=== PATIENT | male | born 1950 | race Caucasian/White ===

== ENCOUNTER 2018-02-16 09:36 | Day surgery (SDC) | payer MEDICARE, OTHER, SELFPAY ==
[2018-02-16] VITALS (7 sets, daily range): BP systolic 117–153; BP diastolic 67–86; PULSE 42–77; RESP 14–50; TEMP 36.3–36.9; O2SAT 96–100; BMI 28.0
--- NOTE | 2018-02-16 | PATH_ITS ---
[facility] Accession Number: [id number] . 01 Material submitted: . PART A: POLYP AT 37 PART B: POLYP PROXIMAL TRANSVERSE COLON AT 120 PART C: POLYP PROXIMAL TRANSVERSE COLON AT 80 PART D: POLYP AT 73 PART E: POLYP AT 34 RECTOSIGMOID JUNCTION PART F: RECTAL BIOPSY . 02 Diagnosis: A. Colon Polyp at 37 cm: Tubular adenoma. . B. Proximal Transverse Colon Polyp at 120 cm: Tubular adenoma. . C. Proximal Transverse Colon Polyp at 80 cm: Tubular adenoma. . D. Colon Polyp at 73 cm: Tubular adenoma. . E. Rectosigmoid Junction Polyp at 34 cm: Tubular adenoma. . F. Rectum, Biopsy: Hyperplastic polyp. Negative for active or microscopic colitis. Negative for granulomata, dysplasia or malignancy. [facility]/02/18/2018 . 02 Electronically signed: . Bassam Toscano MD, PhD, Pathologist NPI- [id number] . 01 Gross description: . Part A: POLYP AT 37: Received in formalin is 1 fragment(s) of costello, soft tissue measuring 0.7 x 0.6 x 0.5 cm submitted entirely in 1 cassette(s) Part B: POLYP PROXIMAL TRANSVERSE COLON AT 120: Received in formalin is 1 fragment(s) of costello, soft tissue measuring 0.4 x 0.4 x 0.2 cm submitted entirely in 1 cassette(s) Part C: POLYP PROXIMAL TRANSVERSE COLON AT 80: Received in formalin is 1 fragment(s) of costello, soft tissue measuring 0.5 x 0.4 x 0.3 cm submitted entirely in 1 cassette(s) Part D: POLYP AT 73: Received in formalin is 1 fragment(s) of costello, soft tissue measuring 0.4 x 0.3 x 0.3 cm submitted entirely in 1 cassette(s) Part E: POLYP AT 34 RECTOSIGMOID JUNCTION: Received in formalin is 1 fragment(s) of costello, soft tissue measuring 0.5 x 0.5 x 0.3 cm submitted entirely in 1 cassette(s) Part F: RECTAL BIOPSY: Received in formalin is 1 fragment(s) of costello, soft tissue measuring 0.5 x 0.5 x 0.5 cm submitted entirely in 1 cassette(s) /CKI /CKI . 02 Pathologist provided ICD-10: D12.3, D12.7 . 02 CPT . 630066, 677979, 365329, 721205, 492323, 546829 Specimen Comment: A duplicate report has been generated due to demographic updates. Performed at: [address] [facility] [address] [id number] MD Josesito Avelar MD Phone: [phone] Performed at: 02 [facility] [address] [place], [place] [id number] MD Rodriguez Mata MD Phone: [phone]
--- NOTE | 2018-02-16 10:23 | PM.HP.1 ---
History of Present Illness Chief complaint: Colonoscopy; [address]978 Narrative: 67 yr old male here for interval colon cancer screening colonoscopy. Last colonoscopy done 3 years ago identified a polyp. No complaints of chronic constipation, abdominal bloating, blood per rectum, melena, abdominal pain. Maternal aunt from colon cancer. Patient History Medical History Other and unspecified hyperlipidemia (Chronic 08/07/12) Hypertension (Chronic) Elevated PSA (Chronic) Back pain (Chronic) H/O adenomatous polyp of colon (Inactive) Meningioma (Resolved 1989) Surgical History History of excision of mass (Resolved 1989) Family & Social History Family History: Reviewed 02/16/18 by Serafin Song MD Social History: household members spouse lives independently Yes caregiver/support person No Tobacco & Substance use: Smoking Status Never smoker alcohol intake current Meds Home Medications Medication Instructions Recorded Confirmed Type lisinopril 20 mg tablet 20 mg PO QDAY #90 tab 02/09/18 02/16/18 Rx Allergies Allergy/AdvReac Type Severity Reaction Status Date / Time No Known Allergies Allergy Uncoded 02/16/18 10:00 Review of Systems Review of Systems All systems reviewed & are unremarkable except as noted in HPI and below Exam Vital Signs (past 8 hours): - 02/16/18 10:01 Temperature 97.3 F L Pulse Rate 77 Respiratory Rate 18 Blood Pressure 153/82 H Pulse Oximetry 100 Oxygen Delivery Method Room Air Const General: healthy appearing [facility] Head: normal to inspection, normocephalic and atraumatic Eyes Sclera: sclerae normal Neck Neck: supple Chest Chest: normal inspection of the chest Resp Effort & Inspection: normal respiratory effort Cardio Rate: regular rate GI Inspection: normal to inspection Palpation: soft Skin General: no rashes or lesions noted Neuro General: alert, awake and moves all extremities Extrem General: normal to inspection Psych Appearance: grossly normal Mental Status: mental status grossly normal Assessment & Plan Plan: Assessment/Plan Narrative: History of colon polyp Interval colon cancer screening colonoscopy Procedure, benefits risks including bleeding and perforation reviewed with patient. Time Spent With Patient Time with patient: 25 - 35 minutes
--- NOTE | 2018-02-16 10:28 | P.HP_ITS ---
History of Present Illness Chief complaint: Colonoscopy; [address] Narrative: 67 yr old male here for interval colon cancer screening colonoscopy. Last colonoscopy done 3 years ago identified a polyp. No complaints of chronic constipation, abdominal bloating, blood per rectum, melena, abdominal pain. Maternal aunt from colon cancer. Patient History Medical History Other and unspecified hyperlipidemia (Chronic 08/07/12) Hypertension (Chronic) Elevated PSA (Chronic) Back pain (Chronic) H/O adenomatous polyp of colon (Inactive) Meningioma (Resolved 1989) Surgical History History of excision of mass (Resolved 1989) Family & Social History Family History: Reviewed 02/16/18 by Serafin Song MD Social History: household members spouse lives independently Yes caregiver/support person No Tobacco & Substance use: Smoking Status Never smoker alcohol intake current Meds Home Medications Medication Instructions Recorded Confirmed Type lisinopril 20 mg tablet 20 mg PO QDAY #90 tab 02/09/18 02/16/18 Rx Allergies Allergy/AdvReac Type Severity Reaction Status Date / Time No Known Allergies Allergy Uncoded 02/16/18 10:00 Review of Systems Review of Systems All systems reviewed & are unremarkable except as noted in HPI and below Exam Vital Signs (past 8 hours): - 02/16/18 10:01 Temperature 97.3 F L Pulse Rate 77 Respiratory Rate 18 Blood Pressure 153/82 H Pulse Oximetry 100 Oxygen Delivery Method Room Air Const General: healthy appearing [facility] Head: normal to inspection, normocephalic and atraumatic Eyes Sclera: sclerae normal Neck Neck: supple Chest Chest: normal inspection of the chest Resp Effort & Inspection: normal respiratory effort Cardio Rate: regular rate GI Inspection: normal to inspection Palpation: soft Skin General: no rashes or lesions noted Neuro General: alert, awake and moves all extremities Extrem General: normal to inspection Psych Appearance: grossly normal Mental Status: mental status grossly normal Assessment & Plan Plan: Assessment/Plan Narrative: History of colon polyp Interval colon cancer screening colonoscopy Procedure, benefits risks including bleeding and perforation reviewed with patient. Time Spent With Patient Time with patient: 25 - 35 minutes
[2018-02-16] MEDS: SODIUM CHLORIDE 0.9% 1,000 ML 42 ML IV (11:01)
[2018-02-16] MEDS: diphenhydrAMINE 50 MG/ML VIAL IV (11:03)
[2018-02-16] MEDS: MIDAZOLAM 5 MG/5 ML VIAL IV (11:04)
[2018-02-16] MEDS: fentaNYL 250 MCG/5 ML INJ IV (11:16)
--- NOTE | 2018-02-16 12:12 | P.OP.ENDO_ITS ---
Operative Date/Time/Diagnoses Date of procedure: 02/16/18 Pre-op diagnosis: History of colon polyp Procedure & Clinicians Study performed: Colonoscopy with polypectomies Same procedure as scheduled: Yes Indications: Colon cancer screening history of colon polyp Surgeon: Serafin Song Procedure Notes SCOAP/Timeout: done Procedure in detail: Patient taken from preoperative area to endoscopy suite with adequate iv access on guerny. Timeout was performed. IV sedation sedation was titrated throughout the case while patient was continuously monitored. Inspection of anal orifice revealed no lesions. Digital exam failed to palpate any lesions. A well lubricated Learndoti colonoscope was gently introduced through the anus and advanced to the cecum using the dither-torque technique. Confirmation of reaching the cecum was acheived by identifying the appendiceal orifice and ileocecal valve. raised polyps at 120cm, 80cm and 70cm in transverse colon were removed with cold biopsy forceps. Raised polyps at 37cm and 34 cm at distal sigmoid colon were removed by snare technique. A resolution clip was appled to polypectomy site at 37cm for hemostasis. Retroflexion of the endoscope in lower third of rectum revealed grade II internal hemorrhoids and a raised polyp that was removed with cold biopsy forceps. Residual insufflation was evacuated. Patient tolerated procedure well and was transferred to PACU in stable condition. Scope withdrawal time: 50 minutes Sedation minutes: 80 Specimen(s): other (polyps at 120, 80,73,37, and 34 cm, and distal rectum.) Complications: none Recommendations: Colonscopy in 3 years (or sooner if indicated by pathology ), High fiber diet and Other recommendation (metamucil daily) Follow up: weeks (1 week to review polypectomy results in surgical clinic) Disposition: PACU
--- NOTE | 2018-02-16 13:05 | SUR.PHASEI ---
Prpolonged Phase )ne stay due to HR slower than intake. Rhythm difficult to read due to artifact and initially called SR irregular with ? blocked PACs, but request of Dr Song for 12 Lead to verify rhythm revealed Afib with slow vent response. Patient assymptomatic. Dr Song spoke with patient at bedside and separately about findings of colonoscopy and 12 Lead.
== END 2018-02-16 13:01 | disposition home or self-care (01) ==
PROVIDERS: Family Provider Family Medicine; PCP Internal Medicine; Visit Provider Surgery
PROC: 0DJD8ZZ Inspection of Lower Intestinal Tract, Via Natural or Artificial Opening Endoscopic (ICD-10-PCS; CPT 45378; principal; 2018-02-16 10:45)
DX: Z86.010 Personal history of colon polyps (principal); K64.1 Second degree hemorrhoids; I48.91 Unspecified atrial fibrillation; E78.5 Hyperlipidemia, unspecified; I10 Essential (primary) hypertension; D12.3 Benign neoplasm of transverse colon; D12.7 Benign neoplasm of rectosigmoid junction; K62.1 Rectal polyp
CPT/HCPCS: 45385; 45380; 88305; 93005; 93010; 99152; 99153; J1200; J2250; J3010

== ENCOUNTER → 2018-02-26 09:00 | Outpatient (CLI) | payer MEDICARE, OTHER, SELFPAY ==
--- NOTE | 2018-03-12 08:29 | PM.CARDMON.1 ---
Wheel Tuner Report Referral & Results Date Patient Seen: 02/27/18 Requesting provider: Artie Cool Indication: Paroxysmal atrial fibrillation Duration of monitoring (days): 8 Diary information: No patient diary entries or triggered events Data: Minimum heart rate identified was 29 beats per minute at 05:25 on 03/01/2018 Maximum heart rate was 172 beats per minute in atrial fibrillation at 16:01 on 02/27/2018 Overall patient was in atrial fibrillation 100% of the time Patient had 4 pauses ranging from 3-3.5 seconds in duration Patient had rare PVCs and a 3.3 sec run of ventricular bigeminy Overall patient's heart rate was less than 100 the vast, vast majority of the time with heart rate below 60 at least 50% or more of the time Impression: Persistent atrial fibrillation with bradycardia and pauses of up to 3.5 sec as above.
--- NOTE | 2018-03-12 08:33 | P.HOLT.S_ITS ---
Early Interventionist Report Referral & Results Date Patient Seen: 02/27/18 Requesting provider: Artie Cool Indication: Paroxysmal atrial fibrillation Duration of monitoring (days): 8 Diary information: No patient diary entries or triggered events Data: Minimum heart rate identified was 29 beats per minute at 05:25 on 2017 Maximum heart rate was 172 beats per minute in atrial fibrillation at 16:01 on 02/27/2018 Overall patient was in atrial fibrillation 100% of the time Patient had 4 pauses ranging from 3-3.5 seconds in duration Patient had rare PVCs and a 3.3 sec run of ventricular bigeminy Overall patient's heart rate was less than 100 the vast, vast majority of the time with heart rate below 60 at least 50% or more of the time Impression: Persistent atrial fibrillation with bradycardia and pauses of up to 3.5 sec as above.
== END ==
PROVIDERS: Family Provider Family Medicine; PCP Internal Medicine; Visit Provider Internal Medicine
DX: I48.91 Unspecified atrial fibrillation (principal)
CPT/HCPCS: 0296T; 0298T

== ENCOUNTER → 2018-04-17 09:19 | Outpatient (CLI) | payer MEDICARE, OTHER, SELFPAY ==
--- NOTE | 2018-04-17 | DI.ECHO.S_ITS ---
[facility] +---------+ : : [address] : [place] : : : : [id number] : : : : Phone: [phone]+ Echocardiogram Report + + :Name: TIM KIM Study Date: 04/17/2018 Height: 73 in : :[facility] Weight: 218 lb: : Gender: Male BSA: 2.2 m2 : :: 1950 Age: 68 yrs : :Reason For Study: AFIB : :Ordering Physician: Korey Ortiz : :Ana Performed By: Fabienne Romero : :Referring: Dr. Artie Cool : + + Interpretation Summary The left ventricle is normal in size. The ejection fraction is estimated to be 60-65%. The right ventricle is mildly dilated. The right ventricular systolic function is normal. There is moderate aortic regurgitation. There is mild to moderate tricuspid regurgitation. The right ventricular systolic pressure is estimated to be at least 38 mmHg based on an estimated right atrial pressure of 15 mm Hg. The aortic root is mildly dilated. The ascending aorta is moderate-severely enlarged. About 4.8 cm in diameter. Procedure: A two-dimensional transthoracic echocardiogram with color flow and Doppler was performed. The study quality was technically adequate. There is no prior echocardiogram noted for this patient. The patient was in atrial fibrillation with heart rates between 50-62 bpm during the exam. Left Ventricle: The left ventricle is normal in size. Proximal septal thickening is noted. Left ventricular wall thickness is borderline increased. There is no thrombus. The ejection fraction is estimated to be 60-65%. There are no focal wall motion abnormalities. Diastolic function could not be accurately assessed due to atrial fibrillation. Right Ventricle: The right ventricle is mildly dilated. The right ventricular systolic function is normal. Atria: The left atrium is severely dilated. The right atrium is moderately dilated. There is no Doppler evidence for an interatrial shunt. Mitral Valve: There is mild mitral annular calcification. There is mild mitral regurgitation. Aortic Valve: The aortic valve is trileaflet. The aortic valve is slightly calcified. There is no aortic valve stenosis. There is moderate aortic regurgitation. Tricuspid Valve: The tricuspid valve is normal. There is mild to moderate tricuspid regurgitation. The right ventricular systolic pressure is estimated to be at least 38 mmHg based on an estimated right atrial pressure of 15 mm Hg. Pulmonic Valve: The pulmonic valve is not well seen, but is grossly normal. There is trace pulmonic regurgitation. Great Vessels: The aortic root is mildly dilated. The ascending aorta is moderate-severely enlarged. The aortic arch is mildly enlarged. The pulmonary artery is normal size. The IVC is dilated (diameter is greater than 2.1 cm) and it collapses less than 50% with a sniff. This suggests a high right atrial pressure of 15 mm Hg. Pericardium/ Pleura There is no pericardial effusion. There is no pleural effusion. MMode/2D Measurements & Calculations LVIDd: 5.1 cm LVOT diam: 2.2 cm LVIDs: 3.0 cm Ao root diam: 4.1 cm FS: 40.6 % asc Aorta Diam: 4.7 cm IVSd: 1.2 cm Ao Arch Diam (distal): 3.3 cm LVPWd: 0.80 cm LV goodrich. diameter/BSA (cm/m^2): 2.3 LV sys. diameter/BSA (cm/m^2): 1.4 LA A2 area: 26.1 cm2 RA long axis: 6.5 cm LA A4 area: 35.0 cm2 RA area: 26.8 cm2 LA length (vol): 6.8 cm RA vol: 93.7 ml LA vol: 114.7 ml RA : 42.0 ml/m2 LA vol index: 51.4 ml/m2 IVC diam: 2.5 cm RVD1 (basal): 4.4 cm Doppler Measurements & Calculations Ao V2 max: 154.2 cm/sec LVOT Max Jarret: 121.3 cm/sec Ao V2 mean: 108.4 cm/sec LV V1 max P.9 mmHg Ao max P.6 mmHg LV V1 VTI: 24.6 cm Ao mean P.3 mmHg JOSE(I,D): 2.9 cm2 Ao V2 VTI: 32.6 cm JOSE(V,D): 3.1 cm2 sev ratio: 0.75 JOSE indexed to BSA (cm^2/m^2): 1.3 MV E max jarret: 103.1 cm/sec TR max jarret: 240.8 cm/sec MV dec time: 0.17 sec TR max P.2 mmHg SV(LVOT): 95.9 ml Reading Physician:SAURAV
== END ==
PROVIDERS: PCP Internal Medicine; Visit Provider Internal Medicine Cardiovascular Disease
DX: I08.3 Combined rheumatic disorders of mitral, aortic and tricuspid valves (principal); I48.1 Persistent atrial fibrillation
CPT/HCPCS: 93306

== ENCOUNTER → 2018-05-15 11:57 | Outpatient (CLI) | payer MEDICARE, OTHER, SELFPAY ==
[2018-05-15 14:28] LABS: BUN Creatinine Ratio 24.4 (6-22); Blood Urea Nitrogen 22 mg/dL (9-20); Calcium 9.1 mg/dL (8.4-10.2); Carbon Dioxide 28 mmol/L (22-32); Chloride 99 mmol/L (98-107); Estimated Glomerular Filt Rate > 60.0 mL/min (>60); Glucose 89 mg/dL (80-110); HEMOLYSIS 20 (0-50); Potassium 3.9 mmol/L (3.4-5.1); Sodium 138 mmol/L (137-145)
== END ==
PROVIDERS: Family Provider Internal Medicine; PCP Internal Medicine; Visit Provider Physician Assistant
DX: I10 Essential (primary) hypertension (principal); I77.9 Disorder of arteries and arterioles, unspecified
CPT/HCPCS: 36415; 80048

== ENCOUNTER → 2019-07-16 09:05 | Outpatient (CLI) | payer MEDICARE, OTHER, SELFPAY ==
--- NOTE | 2019-07-16 | DI.ECHO.S_ITS ---
[facility]---------+ [facility] +---------+ : : [address] : [place] : : : : [id number] : : : : Phone: [phone] : [phone] +---------+ Echocardiogram Report + + :Name: TIM KIM Study Date: 07/16/2019 Height: 73 in : :[facility] Weight: 227 lb : : Gender: Male BSA: 2.3 m2 : :: 1950 Age: 69 yrs BP: 162/86 mmHg: :Reason For Study: THORACIC AORTIC ECTASIS : :Ordering Physician: Phillip : :Angel Porter Performed By: Rosalie Mcrae : + + Interpretation Summary 1) Normal left ventricular size with normal function (EF 60-65%). 2) Mildly enlarged right ventricle with normal function. 3) The left atrium is severely dilated. 4) There is mild to moderate aortic regurgitation. 5) The ascending aorta is moderate-severely enlarged at 4.8cm. 6) Hypertension present during the study (BP 162/86mmHg). 7) Compared to the Echo done 04/17/2018, no significant change. Procedure: A two-dimensional transthoracic echocardiogram with color flow and Doppler was performed. The study quality was technically adequate. Comparison is made with the echocardiogram of 04/17/2018. The patient was in atrial fibrillation with heart rates between 46-73 bpm during the exam. Left Ventricle: The left ventricle is normal in size. Proximal septal thickening is noted. There is no ventricular septal defect visualized. The ejection fraction is estimated to be 60-65%. There are no obvious focal wall motion abnormalities noted but poor endocardial definition reduces the sensitivity for the detection of such. Diastolic function could not be accurately assessed due to atrial fibrillation. Right Ventricle: The right ventricle is mildly dilated. The right ventricular systolic function is normal. Atria: The left atrium is severely dilated. The right atrium is moderately dilated. There is no Doppler evidence for an interatrial shunt. Mitral Valve: The mitral valve is normal in structure and function. There is trace mitral regurgitation. Aortic Valve: The aortic valve is trileaflet. The aortic valve is mildly calcified. There is no aortic valve stenosis. There is mild to moderate aortic regurgitation. Tricuspid Valve: The tricuspid valve is normal in structure and function. There is trace tricuspid regurgitation. Right ventricular systolic pressure is estimated to be 28 mmHg plus the clinically estimated CVP which cannot be estimated on this exam. Pulmonic Valve: The pulmonic valve is not well visualized. There is a trace or physiologic amount of pulmonic regurgitation. Great Vessels: The aortic root is moderately dilated. The ascending aorta is moderate-severely enlarged. The aortic arch is normal in size. The inferior vena cava was not well visualized. The IVC has a measurement of 19 mm. Pericardium/ Pleura There is no pericardial effusion. MMode/2D Measurements & Calculations LVIDd: 5.4 cm LVOT diam: 2.2 cm LVIDs: 3.0 cm Ao root diam: 4.6 cm FS: 44.4 % Aortic Jxn: 4.1 cm EPSS: 0.13 cm asc Aorta Diam: 4.8 cm IVSd: 1.1 cm Ao Arch Diam (Prox Trans): 2.7 cm LVPWd: 0.91 cm LV goodrich. diameter/BSA (cm/m^2): 2.4 LV sys. diameter/BSA (cm/m^2): 1.3 LA A2 area: 36.4 cm2 RA long axis: 6.8 cm LA A4 area: 31.2 cm2 RA area: 27.2 cm2 LA length (vol): 6.8 cm RA vol: 92.2 ml LA vol: 141.4 ml RA : 40.6 ml/m2 LA vol index: 62.3 ml/m2 IVC diam: 1.9 cm RVD1 (basal): 4.2 cm RVD2 (mid): 2.5 cm TAPSE: 2.3 cm Doppler Measurements & Calculations Ao V2 max: 168.9 cm/sec LVOT Max Jarret: 86.2 cm/sec Ao V2 mean: 105.4 cm/sec LV V1 max P.0 mmHg Ao max P.4 mmHg LV V1 VTI: 16.6 cm Ao mean P.3 mmHg JOSE(I,D): 2.0 cm2 Ao V2 VTI: 30.6 cm JOSE(V,D): 1.9 cm2 sev ratio: 0.54 JOSE indexed to BSA (cm^2/m^2): 0.88 AI P1/2t: 1195 msec AI dec slope: 107.1 cm/sec2 Med Peak E' Jarret: 8.4 cm/sec TR max jarret: 266.2 cm/sec Lat Peak E' Jarret: 10.0 cm/sec TR max P.4 mmHg MVA(VTI): 4.0 cm2 PA V2 max: 81.3 cm/sec PA V2 mean: 57.8 cm/sec PA mean P.5 mmHg PA Accel Time: 0.11 sec MV V2 mean: 53.9 cm/sec SV(LVOT): 61.4 ml MV mean P.4 mmHg MV V2 VTI: 15.2 cm Reading Physician:03:50 PM
== END ==
PROVIDERS: Family Provider Internal Medicine; PCP Internal Medicine; Referring Provider Internal Medicine Cardiovascular Disease; Visit Provider Internal Medicine Cardiovascular Disease
DX: I77.810 Thoracic aortic ectasia (principal); I35.1 Nonrheumatic aortic (valve) insufficiency
CPT/HCPCS: 93306

== ENCOUNTER → 2019-07-30 09:36 | Outpatient (CLI) | payer MEDICARE, OTHER, SELFPAY ==
[2019-07-30 09:52] LABS: RBC Urine None Seen (0-5/HPF)
[2019-07-30 12:25] LABS: Add Manual Diff / Slide Review NO; Appearance Urine UA CLEAR; Basophils Absolute Auto 0 /uL (0-100); Basophils Percent Auto 0.8 % (0-2); Bilirubin Urine UA NEGATIVE (NEGATIVE); Color Urine UA YELLOW; Eosinophils Absolute Auto 100 /uL (0-450); Eosinophils Percent Auto 1.7 % (2-4); Glucose Urine UA NEGATIVE (Negative); Hematocrit 42.6 % (41-53); Hemoglobin 14.3 g/dL (13.5-17.5); Ketones Urine UA NEGATIVE (NEGATIVE); Leukocyte Esterase Urine UA NEGATIVE (NEGATIVE); Lymphocytes Absolute Auto 1100 /uL (1100-4500); Lymphocytes Percent Auto 22.6 % (25-40); Mean Corpuscular HGB Conc 33.7 % (30-36); Mean Corpuscular Hemoglobin 33.5 PG (26-34); Mean Corpuscular Volume 99.4 fL (80-100); Monocytes Absolute Auto 600 /uL (0-900); Monocytes Percent Auto 12.6 % (3-14); Neutrophils Absolute Auto 3000 /uL (1500-7000); Neutrophils Percent Auto 62.3 % (50-75); Nitrite Urine UA NEGATIVE (Negative); Occult Blood Urine UA NEGATIVE (Negative); Platelet Count 202 X10^3/uL (150-400); Protein Urine UA NEGATIVE (Negative); Red Blood Cell Count 4.28 X10^6/uL (4.5-5.9); Urobilinogen Urine UA 0.2 E.U./dL (0.2); White Blood Cell Count 4.8 X10^3/uL (4.5-11.0)
[2019-07-30 12:51] LABS: Alanine Aminotransferase 73 IU/L (<50); Albumin 4.6 g/dL (3.5-5.0); Albumin Globulin Ratio 1.8 (1.0-2.8); Alkaline Phosphatase 47 U/L (38-126); Aspartate Aminotransferase 61 IU/L (17-59); BUN Creatinine Ratio 14.4 (6-22); Bilirubin Total 1.5 mg/dL (0.2-1.3); Bilirubin Unconjugated 1.3 mg/dL (0.0-1.1); Blood Urea Nitrogen 13 mg/dL (9-20); Calcium 9.3 mg/dL (8.4-10.2); Carbon Dioxide 27 mmol/L (22-32); Chloride 104 mmol/L (98-107); Cholesterol 199 mg/dL (140-199); Estimated Glomerular Filt Rate > 60.0 mL/min (>60); Globulin 2.6 g/dL (1.7-4.1); Glucose 88 mg/dL (80-110); HDL Cholesterol 73 mg/dL (40-60); HEMOLYSIS < 15 (0-50); LDL Cholesterol Calculated 101 mg/dL (<100); Potassium 4.7 mmol/L (3.4-5.1); Sodium 139 mmol/L (137-145); Total Protein 7.2 g/dL (6.3-8.2); Triglycerides 124 mg/dL (35-150)
[2019-07-30 13:16] LABS: Prostate Specific Antigen 5.29 ng/mL (0.10-4.00)
[2019-07-30 13:40] LABS: Urine N gonorrhoeae NOT DETECTED
[2019-07-30 13:44] LABS: Bacteria Urine Occasional (0-1); WBC Urine 0-1/HPF (0-5/HPF)
[2019-07-30 14:16] LABS: Urine Chlamydia NOT DETECTED
== END ==
PROVIDERS: Family Provider Internal Medicine; PCP Internal Medicine; Referring Provider Internal Medicine; Visit Provider Internal Medicine
DX: I10 Essential (primary) hypertension (principal); I48.19 Other persistent atrial fibrillation; N34.2 Other urethritis; R97.20 Elevated prostate specific antigen [PSA]
CPT/HCPCS: 36415; 80048; 80061; 80076; 81001; 84153; 85025; 87491; 87591

== ENCOUNTER → 2020-08-24 08:02 | Outpatient (CLI) | payer MEDICARE, OTHER, SELFPAY ==
[2020-08-24 09:13] LABS: Add Manual Diff / Slide Review NO; Basophils Absolute Auto 0 /uL (0-100); Basophils Percent Auto 0.7 % (0-2); Eosinophils Absolute Auto 100 /uL (0-450); Eosinophils Percent Auto 2.8 % (2-4); Hematocrit 41.5 % (41-53); Hemoglobin 14.3 g/dL (13.5-17.5); Lymphocytes Absolute Auto 1300 /uL (1100-4500); Lymphocytes Percent Auto 31.2 % (25-40); Mean Corpuscular HGB Conc 34.4 % (30-36); Mean Corpuscular Volume 99.1 fL (80-100); Monocytes Absolute Auto 600 /uL (0-900); Monocytes Percent Auto 13.5 % (3-14); Neutrophils Absolute Auto 2200 /uL (1500-7000); Neutrophils Percent Auto 51.8 % (50-75); Platelet Count 177 X10^3/uL (150-400); Red Blood Cell Count 4.19 X10^6/uL (4.5-5.9); Red Cell Distribution Width 13.3 % (11.6-14.8); White Blood Cell Count 4.2 X10^3/uL (4.5-11.0)
[2020-08-24 09:33] LABS: BUN Creatinine Ratio 20.2 (6-22); Blood Urea Nitrogen 19 mg/dL (9-20); Carbon Dioxide 27 mmol/L (22-32); Chloride 105 mmol/L (98-107); Cholesterol 192 mg/dL (140-199); Estimated Glomerular Filt Rate > 60.0 mL/min (>60); Glucose 95 mg/dL (80-110); HDL Cholesterol 69 mg/dL (40-60); HEMOLYSIS < 15 (0-50); LDL Cholesterol Calculated 98 mg/dL (<100); Potassium 4.7 mmol/L (3.4-5.1); Sodium 139 mmol/L (137-145); Triglycerides 127 mg/dL (35-150)
== END ==
PROVIDERS: Family Provider Internal Medicine; PCP Internal Medicine; Referring Provider Internal Medicine Cardiovascular Disease; Visit Provider Internal Medicine Cardiovascular Disease
DX: I10 Essential (primary) hypertension (principal)
CPT/HCPCS: 36415; 80048; 80061; 85025

== ENCOUNTER → 2020-08-29 09:08 | Outpatient (CLI) | payer MEDICARE, OTHER, SELFPAY ==
--- NOTE | 2020-08-29 | DI.ECHO.S_ITS ---
[facility]---------+ [facility] +---------+ : : [address] : : : : [phone] : : : : Phone: [phone] +[phone]+ Echocardiogram Report + + :Name: TIM KIM Study Date: 08/29/2020 Height: 73 in : :[facility] ReadingLocation: Weight: 220 lb : : Gender: Male BSA: 2.2 m2 : :: 1950 Age: 70 yrs BP: 168/83 mmHg: :Reason For Study: THORACIC AORTIC ECTASIA : :Ordering Physician: TRACIE, : :EARLINE Performed By: Dorcas Galvan : :Referring: EARLINE PORTER : + + Interpretation Summary 1) Normal left ventricular size with normal function (EF 60-65%). 2) Mildly enlarged right ventricle with normal function. 3) The left atrium is severely dilated. Moderate to severe right atrial enlargement is also present. 4) There is moderate aortic regurgitation. 5) The ascending aorta is moderate-severely enlarged at 4.8cm. 6) Hypertension present during the study (BP 168/83mmHg). 7) Compared to the Echo done 07/16/2019, aortic regurgitation is slightly worse on this study Procedure: A two-dimensional transthoracic echocardiogram with color flow and Doppler was performed. The study quality was technically adequate. Comparison is made with the echocardiogram of 07/16/2019. The patient was in atrial fibrillation with heart rates between 48-70 bpm during the exam. Left Ventricle: The left ventricle is normal in size. Proximal septal thickening is noted. The ejection fraction is estimated to be 60-65%. There are no obvious focal wall motion abnormalities noted but poor endocardial definition reduces the sensitivity for the detection of such. Diastolic function could not be accurately assessed due to atrial fibrillation. Right Ventricle: The right ventricle is mildly dilated. The right ventricular systolic function is normal. Atria: The left atrium is severely dilated. The right atrium is moderate to severely dilated. There is no Doppler evidence for an interatrial shunt. Mitral Valve: The mitral valve is normal in structure and function. There is trace mitral regurgitation. Aortic Valve: The aortic valve is trileaflet. The aortic valve opens well. There is no aortic valve stenosis. There is moderate aortic regurgitation. Tricuspid Valve: The tricuspid valve is normal in structure and function. The right ventricular systolic pressure is estimated to be at least 32 mmHg based on an estimated right atrial pressure of 8 mm Hg. There is trace tricuspid regurgitation. Pulmonic Valve: The pulmonic valve is not well visualized. There is no pulmonic valvular regurgitation. Great Vessels: The aortic root is moderately dilated. The ascending aorta is moderate-severely enlarged. The IVC is dilated (diameter is greater than 2.1 cm) yet it collapses greater than 50% with a sniff. This suggests a right atrial pressure of 8 mm Hg. Pericardium/ Pleura There is no pericardial effusion. There is no pleural effusion. MMode/2D Measurements & Calculations LVIDd: 5.8 cm LVOT diam: 2.1 cm LVIDs: 3.7 cm Ao root diam: 4.5 cm FS: 37.3 % asc Aorta Diam: 4.8 cm EPSS: 0.76 cm Ao Arch Diam (Prox Trans): 3.5 cm IVSd: 1.1 cm LVPWd: 0.75 cm LV goodrich. diameter/BSA (cm/m^2): 2.6 LV sys. diameter/BSA (cm/m^2): 1.6 LA A2 area: 40.7 cm2 RA long axis: 6.6 cm LA A4 area: 27.6 cm2 RA area: 28.7 cm2 LA length (vol): 6.8 cm RA vol: 105.3 ml LA vol: 140.6 ml RA : 47.0 ml/m2 LA vol index: 62.8 ml/m2 IVC diam: 2.4 cm RVD1 (basal): 3.5 cm TAPSE: 2.3 cm Doppler Measurements & Calculations Ao V2 max: 197.4 cm/sec LVOT Max Jarret: 101.2 cm/sec Ao V2 mean: 132.0 cm/sec LV V1 max P.1 mmHg Ao max P.6 mmHg LV V1 VTI: 23.9 cm Ao mean P.2 mmHg JOSE(I,D): 2.1 cm2 Ao V2 VTI: 39.8 cm JOSE(V,D): 1.8 cm2 sev ratio: 0.60 JOSE indexed to BSA (cm^2/m^2): 0.96 AI P1/2t: 916.5 msec AI dec slope: 145.3 cm/sec2 Med Peak E' Jarret: 8.5 cm/sec TR max jarret: 246.2 cm/sec Lat Peak E' Jarret: 12.9 cm/sec TR max P.2 mmHg PA pr(Accel): 27.6 mmHg SV(LVOT): 85.2 ml Reading Physician:12:47 PM
== END ==
PROVIDERS: Family Provider Internal Medicine; PCP Internal Medicine; Referring Provider Internal Medicine Cardiovascular Disease; Visit Provider Internal Medicine Cardiovascular Disease
DX: I35.1 Nonrheumatic aortic (valve) insufficiency (principal); I77.810 Thoracic aortic ectasia
CPT/HCPCS: 93306

== ENCOUNTER → 2021-01-02 07:42 | Outpatient (CLI) | payer MEDICARE, OTHER, SELFPAY ==
[2021-01-02 09:28] LABS: Alanine Aminotransferase 119 IU/L (<50); Albumin 4.3 g/dL (3.5-5.0); Albumin Globulin Ratio 1.8 (1.0-2.8); Alkaline Phosphatase 64 U/L (38-126); Aspartate Aminotransferase 74 IU/L (17-59); Bilirubin Total 1.1 mg/dL (0.2-1.3); Blood Urea Nitrogen 16 mg/dL (9-20); Calcium 9.4 mg/dL (8.4-10.2); Carbon Dioxide 30 mmol/L (22-32); Chloride 106 mmol/L (98-107); Estimated Glomerular Filt Rate > 60.0 mL/min (>60); Globulin 2.4 g/dL (1.7-4.1); Glucose 108 mg/dL (80-110); HEMOLYSIS < 15 (0-50); Potassium 4.7 mmol/L (3.4-5.1); Sodium 141 mmol/L (137-145); Total Protein 6.7 g/dL (6.3-8.2)
[2021-01-02 09:56] LABS: Prostate Specific Antigen 5.08 ng/mL (0.10-4.00)
== END ==
PROVIDERS: Family Provider Internal Medicine; PCP Internal Medicine; Referring Provider Internal Medicine; Visit Provider Internal Medicine
DX: E78.5 Hyperlipidemia, unspecified (principal); R74.01 Elevation of levels of liver transaminase levels; R97.20 Elevated prostate specific antigen [PSA]
CPT/HCPCS: 36415; 80053; 84153

== ENCOUNTER → 2021-09-25 16:11 | Outpatient (CLI) | payer MEDICARE, OTHER, SELFPAY ==
--- NOTE | 2021-09-25 16:13 | DI.ECHO.S_ITS ---
[facility]---------+ [facility] +---------+ : : [address] : [place] : : : : [id number] : : : : Phone: [phone]+ Echocardiogram Report + + :Name: TIM KIM Study Date: 09/25/2021 Height: 73.5 in : :[facility] ReadingLocation: Weight: 220 lb : : Gender: Male BSA: 2.3 m2 : :: 1950 Age: 71 yrs BP: 151/100 mmHg: :Reason For Study: THORACIC AORTIC ECTASIA : :Ordering Physician: TRACIE, : :EARLINE Performed By: Dorcas Galvan : :Referring: EARLINE PORTER : + + Interpretation Summary 1) Normal left ventricular size, wall motion, and systolic function (EF 55- 60%). 2) Normal right ventricular size and function. 3) There is moderate aortic regurgitation. 4) The ascending aorta is moderate-severely enlarged at 4.8cm. 5) Hypertension present during the study (BP 151/100mmHg). 6) Compared to the Echo done 08/29/2020, no significant change. Procedure: A two-dimensional transthoracic echocardiogram with color flow and Doppler was performed. The study quality was technically adequate. Comparison is made with the echocardiogram of 08/29/2020. The patient was in sinus rhythm with heart rates between 59-70 bpm during the exam. Left Ventricle: The left ventricle is normal in size. Proximal septal thickening is noted. Left ventricular wall thickness is mildly increased. The ejection fraction is estimated to be 55-60%. Left ventricular systolic function appears normal without focal wall motion abnormalities. Right Ventricle: The right ventricle is normal in size and function. Atria: The left atrium is severely dilated. The right atrium is moderate to severely dilated. There is no Doppler evidence for an interatrial shunt. Mitral Valve: The mitral valve is normal in structure and function. There is mild mitral regurgitation. Aortic Valve: The aortic valve is trileaflet. The aortic valve opens well. There is no aortic valve stenosis. There is moderate aortic regurgitation. Tricuspid Valve: The tricuspid valve is normal in structure and function. There is mild tricuspid regurgitation. The right ventricular systolic pressure is estimated to be at least 34 mmHg based on an estimated right atrial pressure of 8 mm Hg. Pulmonic Valve: The pulmonic valve is not well seen, but is grossly normal. There is mild pulmonic regurgitation. Great Vessels: The aortic root is moderately dilated. The ascending aorta is moderate-severely enlarged. The IVC is dilated (diameter is greater than 2.1 cm) yet it collapses greater than 50% with a sniff. This suggests a right atrial pressure of 8 mm Hg. Pericardium/ Pleura There is no pericardial effusion. There is no pleural effusion. MMode/2D Measurements & Calculations LVIDd: 5.6 cm LVOT diam: 2.1 cm LVIDs: 3.6 cm Ao root diam: 4.5 cm FS: 36.2 % asc Aorta Diam: 4.8 cm IVSd: 1.2 cm Ao Arch Diam (Prox Trans): 3.2 cm LVPWd: 0.98 cm LV goodrich. diameter/BSA (cm/m^2): 2.5 LV sys. diameter/BSA (cm/m^2): 1.6 LA A2 area: 33.7 cm2 RA long axis: 6.7 cm LA A4 area: 31.0 cm2 RA area: 28.8 cm2 LA length (vol): 7.2 cm RA vol: 104.9 ml LA vol: 123.9 ml RA : 46.6 ml/m2 LA vol index: 55.0 ml/m2 IVC diam: 2.3 cm RVD1 (basal): 3.6 cm RVD2 (mid): 3.0 cm TAPSE: 2.4 cm Doppler Measurements & Calculations Ao V2 max: 207.2 cm/sec LVOT Max Jarret: 140.9 cm/sec Ao V2 mean: 117.7 cm/sec LV V1 max P.9 mmHg Ao max P.2 mmHg LV V1 VTI: 31.3 cm Ao mean P.6 mmHg JOSE(I,D): 3.2 cm2 Ao V2 VTI: 35.2 cm JOSE(V,D): 2.4 cm2 sev ratio: 0.89 JOSE indexed to BSA (cm^2/m^2): 1.4 AI P1/2t: 621.7 msec AI dec slope: 231.9 cm/sec2 Med Peak E' Jarret: 7.5 cm/sec TR max jarret: 252.8 cm/sec Lat Peak E' Jarret: 11.3 cm/sec TR max P.6 mmHg PA pr(Accel): 34.5 mmHg SV(LVOT): 111.9 ml Reading Physician:05:23 PM
== END ==
PROVIDERS: Family Provider Internal Medicine; PCP Internal Medicine; Referring Provider Internal Medicine Cardiovascular Disease; Visit Provider Internal Medicine Cardiovascular Disease
DX: I77.810 Thoracic aortic ectasia (principal); I08.3 Combined rheumatic disorders of mitral, aortic and tricuspid valves
CPT/HCPCS: 93306

== ENCOUNTER → 2023-01-14 09:15 | Outpatient (CLI) | payer MEDICARE, OTHER, SELFPAY ==
--- NOTE | 2023-01-14 | DI.ECHO.S_ITS ---
[facility]---------+ [facility] +---------+ : : [address] [place] : : : : [id number] : : : : Phone: [phone]+ Echocardiogram Report + + :Name: TIM KIM Study Date: 01/14/2023 Height: 73.5 in: :[facility] ReadingLocation: Weight: 214 lb : : Gender: Male BSA: 2.2 m2 : :: 1950 Age: 72 yrs BP: 168/83 mmHg: :Reason For Study: THORACIC AORTIC ECTASIA : :Ordering Physician: TRACIE, : :EARLINE Performed By: Dorcas Galvan : :Referring: EARLINE PORTER : + + Interpretation Summary 1) Normal left ventricular size, wall motion, and systolic function (EF 55- 60%). 2) Normal right ventricular size and function. 3) Severe biatrial enlargement. 4) There is moderate aortic regurgitation. 5) The ascending aorta is severely enlarged at 4.9cm. 6) Hypertension present during the study (BP 168/83mmHg). 7) Compared to the Echo done 09/25/2021, ascending aorta enlargement has increased by 0.1cm on this study. Procedure: A two-dimensional transthoracic echocardiogram with color flow and Doppler was performed. The study quality was technically adequate. Comparison is made with the echocardiogram of 09/25/2021. The patient was in sinus bradycardia with heart rates between 50-63 bpm during the exam. Left Ventricle: The left ventricle is normal in size. Left ventricular wall thickness is normal. Proximal septal thickening is noted. The ejection fraction is estimated to be 55-60%. Left ventricular systolic function appears normal without focal wall motion abnormalities. Diastolic function could not be accurately assessed due to unobtainable data. Right Ventricle: The right ventricle is normal in size and function. Atria: The left atrium is severely dilated. The right atrium is severely dilated. There is no Doppler evidence for an interatrial shunt. Mitral Valve: The mitral valve is normal in structure and function. There is trace mitral regurgitation. Aortic Valve: The aortic valve is trileaflet. The aortic valve is slightly calcified. There is no aortic valve stenosis. There is moderate aortic regurgitation. Tricuspid Valve: The tricuspid valve is normal in structure and function. There is mild tricuspid regurgitation. The right ventricular systolic pressure is estimated to be at least 43 mmHg based on an estimated right atrial pressure of 15 mm Hg. Pulmonic Valve: The pulmonic valve is not well seen, but is grossly normal. Great Vessels: The aortic root is moderately dilated. The ascending aorta is severely enlarged. The IVC is dilated (diameter is greater than 2.1 cm) and it collapses less than 50% with a sniff. This suggests a high right atrial pressure of 15 mm Hg. Pericardium/ Pleura There is no pericardial effusion. There is no pleural effusion. MMode/2D Measurements & Calculations LVIDd: 5.7 cm LVOT diam: 2.3 cm LVIDs: 3.7 cm Ao root diam: 4.6 cm FS: 34.9 % asc Aorta Diam: 4.9 cm IVSd: 1.3 cm Ao Arch Diam (Prox Trans): 3.2 cm LVPWd: 0.99 cm LV goodrich. diameter/BSA (cm/m^2): 2.6 LV sys. diameter/BSA (cm/m^2): 1.7 LA A2 area: 33.3 cm2 RA long axis: 6.8 cm LA A4 area: 31.5 cm2 RA area: 29.9 cm2 LA length (vol): 7.3 cm RA vol: 112.7 ml LA vol: 122.3 ml RA : 50.6 ml/m2 LA vol index: 54.9 ml/m2 IVC diam: 2.6 cm RVD1 (basal): 3.7 cm RVD2 (mid): 2.6 cm TAPSE: 1.9 cm Doppler Measurements & Calculations Ao V2 max: 234.7 cm/sec LVOT Max Jarret: 141.0 cm/sec Ao V2 mean: 157.1 cm/sec LV V1 max P.0 mmHg Ao max P.0 mmHg LV V1 VTI: 30.6 cm Ao mean P.1 mmHg JSOE(I,D): 2.9 cm2 Ao V2 VTI: 44.8 cm JOSE(V,D): 2.5 cm2 sev ratio: 0.68 JOSE indexed to BSA (cm^2/m^2): 1.3 AI P1/2t: 523.6 msec AI dec slope: 256.0 cm/sec2 Med Peak E' Jarret: 8.3 cm/sec TR max jarret: 265.7 cm/sec Lat Peak E' Jarret: 11.4 cm/sec TR max P.2 mmHg PA V2 max: 95.2 cm/sec PA V2 mean: 68.7 cm/sec PA mean P.1 mmHg PA pr(Accel): 29.3 mmHg SV(LVOT): 129.8 ml Reading Physician:03:09 PM
== END ==
PROVIDERS: Family Provider Internal Medicine; PCP Internal Medicine; Referring Provider Internal Medicine Cardiovascular Disease; Visit Provider Internal Medicine Cardiovascular Disease
DX: I77.810 Thoracic aortic ectasia (principal); I08.2 Rheumatic disorders of both aortic and tricuspid valves; I77.89 Other specified disorders of arteries and arterioles
CPT/HCPCS: 93306

== ENCOUNTER → 2023-02-14 08:42 | Outpatient (CLI) | payer MEDICARE, OTHER, SELFPAY ==
[2023-02-14 09:59] LABS: Add Manual Diff / Slide Review NO; Basophils Absolute Auto 0 /uL (0-100); Basophils Percent Auto 0.5 % (0-2); Eosinophils Absolute Auto 200 /uL (0-450); Eosinophils Percent Auto 2.9 % (2-4); Hematocrit 40.7 % (41-53); Hemoglobin 14.3 g/dL (13.5-17.5); Lymphocytes Absolute Auto 1500 /uL (1100-4500); Lymphocytes Percent Auto 27.4 % (25-40); Mean Corpuscular Hemoglobin 35.8 PG (26-34); Mean Corpuscular Volume 102.3 fL (80-100); Monocytes Absolute Auto 600 /uL (0-900); Monocytes Percent Auto 11.9 % (3-14); Neutrophils Absolute Auto 3100 /uL (1500-7000); Neutrophils Percent Auto 57.3 % (50-75); Platelet Count 170 X10^3/uL (150-400); Red Blood Cell Count 3.98 X10^6/uL (4.5-5.9); Red Cell Distribution Width 13.6 % (11.6-14.8); White Blood Cell Count 5.4 X10^3/uL (4.5-11.0)
[2023-02-14 10:13] LABS: BUN Creatinine Ratio 18.4 (6-22); Blood Urea Nitrogen 16 mg/dL (9-20); Calcium 9.5 mg/dL (8.4-10.2); Carbon Dioxide 26 mmol/L (22-32); Chloride 107 mmol/L (98-107); Cholesterol 180 mg/dL (140-199); Estimated Glomerular Filt Rate > 60 mL/min (>60); Glucose 88 mg/dL (80-110); HDL Cholesterol 66 mg/dL (40-60); HEMOLYSIS < 15 (0-50); LDL Cholesterol Calculated 94 mg/dL (<100); Potassium 4.7 mmol/L (3.4-5.1); Sodium 139 mmol/L (137-145); Triglycerides 100 mg/dL (35-150)
== END ==
PROVIDERS: Family Provider Internal Medicine; PCP Internal Medicine; Referring Provider Internal Medicine Cardiovascular Disease; Visit Provider Internal Medicine Cardiovascular Disease
DX: I10 Essential (primary) hypertension (principal); Z79.01 Long term (current) use of anticoagulants
CPT/HCPCS: 36415; 80048; 80061; 85025

== ENCOUNTER → 2023-08-13 08:44 | Outpatient (CLI) | payer MEDICARE, OTHER, SELFPAY ==
--- NOTE | 2023-08-13 08:46 | DI.RAD.S_ITS ---
PROCEDURE: XR HIP W PEL IF DONE LT 2V INDICATIONS: left hip pain TECHNIQUE: AP pelvis with lateral view(s) of the left hip(s). COMPARISON: None. FINDINGS: Bones: No fractures or dislocations. Pelvic ring appears intact. No suspicious bony lesions. Mild nonuniform joint space narrowing with osteophytic lipping of the acetabulum. Soft tissues: The visualized bowel gas pattern is normal. No suspicious soft tissue calcifications. IMPRESSION: Mild hip osteoarthritis. Kellgren-Austin Grade 2. Dictated by: Hardik Rasmussen M.D. on 08/13/2023 at 16:22 Approved by: Hardik Rasmussen M.D. on 08/13/2023 at 16:22
== END ==
PROVIDERS: Family Provider Internal Medicine; PCP Internal Medicine; Referring Provider Internal Medicine; Visit Provider Internal Medicine
DX: M16.12 Unilateral primary osteoarthritis, left hip (principal); M25.552 Pain in left hip
CPT/HCPCS: 73502

== ENCOUNTER 2023-12-30 09:38 | Day surgery (SDC) | payer MEDICARE, OTHER, SELFPAY ==
--- NOTE | 2023-12-30 | PATH_ITS ---
[facility] Accession Number: [id number] No. of containers..01 Tissue . 01 Material submitted: . colon - DESCENDING COLON POLYP . 01 Diagnosis: A. DESCENDING COLON, POLYP: Tubular adenoma. [facility] 01/01/2024 1422 Local . 01 Electronically signed: . Jameel Tay MD, Pathologist NPI- [id number] . 01 Gross description: . Received in formalin with two patient identifiers and descending colon polyp, are three costello to brown soft tissue fragments, 0.2 to 0.3 cm in greatest dimension. Submitted in A1. ([id number]) /MRV 12/31/2023 1040 Local . 01 Pathologist provided ICD-10: Z12.11, Z86.010 . 01 CPT . 116443 Specimen Comment: A courtesy copy of this report has been sent to [phone] Performed at: [address] [id number] MD Josesito Avelar MD Phone: [phone]
[2023-12-30] MEDS: LACTATED RINGERS 1,000 ML 42 ML IV (10:13)
[2023-12-30 10:15] VITALS: BP 184/69; PULSE 65; RESP 16; TEMP 36.6; O2SAT 98
--- NOTE | 2023-12-30 10:42 | PM.HP.1 ---
History of Present Illness History of Present Illness Date Patient Seen: 12/30/23 Time Patient Seen: 10:42 Chief complaint: Screening Colonoscopy Narrative: 73-year-old man personal history of colonic polyps here for screening colonoscopy. Perhaps his mother had colon cancer but ultimately of ovarian cancer. No abdominal concerns today. COUNTS INCLUDE 234 BEDS AT THE [facility] Medical History Persistent atrial fibrillation Paroxysmal atrial fibrillation H/O adenomatous polyp of colon Other and unspecified hyperlipidemia (08/07/12) Hypertension Elevated PSA Back pain Meningioma (1989) Surgical History History of excision of mass (1989) Family History Mother Ovarian cancer Social History marital status: number of children: 1 household members: spouse lives independently: Yes caregiver/support person: No housing: house pets and animals: Yes education level: college (+ some.) occupational status: other (Retired) 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 travel history: recent ([place]) and other (Travels a lot, [place], [place], [place]) leisure activities: sports, exercise and fishing Smoking Status: Never smoker Tobacco: How many years used: 0 quit status: quit date established (Never started) second hand exposure: Yes (Throughout career at times.) alcohol intake: current substance use type: does not use Meds Home Medications and Allergies Home Medications Medication Instructions Recorded Confirmed Type rivaroxaban 20 mg tablet (Xarelto) 20 mg PO DAILY 05/25/18 12/30/23 History losartan 100 mg tablet 100 mg PO .QEVENING 07/30/19 12/30/23 History amlodipine 5 mg tablet 5 mg PO DAILY 06/09/23 12/30/23 History Allergies Allergy/AdvReac Type Severity Reaction Status Date / Time No Known Drug Allergies Allergy Verified 12/30/23 10:13 Exam Vital Signs (past 8 hours): - 12/30/23 10:15 Temperature 97.8 F Pulse Rate 65 Respiratory Rate 16 Blood Pressure 184/69 H Pulse Oximetry 98 Oxygen Delivery Method Room Air Oxygen Delivery Method Room Air Narrative Exam Narrative: General adult man alert oriented no acute distress Chest nonlabored respiration Extremities warm well perfused Assessment & Plan Assessment & Plan narrative: The patient requires colorectal screening and colonoscopy is recommended. Technical details were discussed. Risks, benefits, alternatives explained. Risks including but not limited to myocardial infarction, aspiration, bleeding, pain, missed lesion, incomplete examination, need for further radiographic studies, intestinal injury, and need for major abdominal surgery were discussed. All questions were answered to their satisfaction, and they are in agreement with this plan. Time-Based Coding :: [TOTAL MINUTES] spent with patient and on the chart (including review of chart, obtaining history, exam, reviewing outside data, placing orders, documenting exam and treatment plan, and counseling patient) on [DATE].
[2023-12-30 11:33] VITALS: BP 134/69; PULSE 74; RESP 17; TEMP 36.7; O2SAT 95
[2023-12-30 11:38] VITALS: BP 136/81; PULSE 70; RESP 18; O2SAT 98
--- NOTE | 2023-12-30 11:39 | P.OP.COLON_ITS ---
Operative Date/Time/Diagnoses Date of procedure: 12/30/23 Time of procedure: 11:39 Pre-op diagnosis: Personal history of colonic polyps Post-op diagnosis: other (Colonic polyp x1) Procedure & Clinicians Study performed: Colonoscopy and polypectomy Same procedure as scheduled: Yes Indications: Personal history of colonic polyps Screening Surgeon: Judson Martinez Procedure Notes Procedure in detail: The history and physical was performed/updated and the patient is ASA class is 2. The procedure was discussed in detail with the patient. Potential risks complications including infection, bleeding, missed diagnosis, perforation, need for surgery, and were explained. Their questions were answered and informed consent was obtained. Patient was brought to the procedure room and placed standard monitoring equipment. The patient's vital signs were monitored continuously throughout the entire procedure. Prior to starting time-out was performed. The patient was placed in the left lateral recumbent position. Procedural sedation was administered by anesthesia. Examination began with a thorough inspection of the perianal area there was no evidence of fissures, fistulae, external hemorrhoids or cutaneous malignancy. The colonoscopy scope was then placed into the anal canal and was advanced to the cecum, which was identified by the ileocecal valve, the appendiceal orifice and the confluence of the taenia. The scope was then slowly withdrawn examining colon thoroughly in all directions, irrigating it of any residual stool. The scope was retroflexed within the rectum The patient tolerated the procedure well. They will be discharged once criteria are met. The prep was of good/excellent quality. The withdrawl time was 10 minutes. FINDINGS * 3 mm polyp within the descending colon removed with biopsy forceps * Mild diverticulosis of distal colon. Specimen(s): other (Sigmoid colon polyp) Impression: Colonic polyp x1 Post-procedure Recommendations: High fiber diet Plan for aftercare: Follow up dependent on pathology findings Disposition: same day surgery
[2023-12-30 11:44] VITALS: BP 133/62; PULSE 65; RESP 16; O2SAT 98
[2023-12-30 11:56] VITALS: BP 155/85; PULSE 65; RESP 16; O2SAT 98
== END 2023-12-30 12:21 | disposition home or self-care (01) ==
PROVIDERS: Family Provider Internal Medicine; PCP Internal Medicine; Referring Provider Surgery; Visit Provider Surgery
PROC: 0DJD8ZZ Inspection of Lower Intestinal Tract, Via Natural or Artificial Opening Endoscopic (ICD-10-PCS; CPT 45378; principal; 2023-12-30 10:45)
DX: Z12.11 Encounter for screening for malignant neoplasm of colon (principal); Z86.010 Personal history of colon polyps; K57.30 Diverticulosis of large intestine without perforation or abscess without bleeding; D12.4 Benign neoplasm of descending colon
CPT/HCPCS: 45380

== ENCOUNTER → 2024-02-10 10:13 | Outpatient (CLI) | payer MEDICARE, OTHER, SELFPAY ==
--- NOTE | 2024-02-10 10:14 | DI.ECHO.S_ITS ---
[place] [facility] +---------+ Hospital : : [address] : : [id number] : : Phone: [phone] Echocardiogram Report + + :Name: TIM KIM Study Date: 02/10/2024 Height: 73.5 in: :[facility] ReadingLocation: Weight: 214 lb : :Account #: [id number] Gender: Male BSA: 2.2 m2 : :: 1950 Age: 73 yrs BP: 166/77 mmHg: :Reason For Study: Ascending Aorta Dilation : :Ordering Physician: TRACIE, : :EARLINE Performed By: Porsche Jameson : :Referring: EARLINE PORTER : + + Interpretation Summary 1) Normal left ventricular size, wall motion, and systolic function (EF 55- 60%). 2) Normal right ventricular size and function. 3) Severe biatrial enlargement. 4) There is moderate aortic regurgitation. 5) The proximal ascending aorta is severely enlarged at 5.6cm. 6) Hypertension present during the study (BP 166/77mmHg). 7) Compared to the Echo done 01/14/2023, ascending aorta enlargement has increased from 4.9cm to 5.6cm on this study. Procedure: A two-dimensional transthoracic echocardiogram with color flow and Doppler was performed. The study quality was technically adequate. Comparison is made with the echocardiogram of 01/14/2023. The patient was in a bradycardic rhythm during the exam. The heart rate ranged between 47-66 bpm during the study. Left Ventricle: The left ventricle is normal in size and wall thickness. The ejection fraction is estimated to be 55-60%. There are no obvious focal wall motion abnormalities noted but poor endocardial definition reduces the sensitivity for the detection of such. Diastolic function could not be accurately assessed due to atrial fibrillation. Right Ventricle: The right ventricle is normal in size and function. Atria: Both atria are severely dilated. There is no Doppler evidence for an interatrial shunt. Mitral Valve: There is fine diastolic fluttering of the mitral valve consistent with aortic regurgitation. There is mild mitral annular calcification. There is mild to moderate mitral regurgitation. Aortic Valve: The aortic valve is trileaflet. There is mild to moderately reduced leaflet mobility. There is mild aortic stenosis. There is moderate aortic regurgitation. Tricuspid Valve: The tricuspid valve leaflets are thin and pliable. There is trace tricuspid regurgitation. Pulmonic Valve: The pulmonic valve leaflets are thin and pliable; valve motion is normal. There is a trace or physiologic amount of pulmonic regurgitation. Great Vessels: The aortic root is moderately dilated. Compared to the Echo done 01/14/2023, ascending aorta enlargement has increased by 1.0 cm on this study from 4.6 cm to 5.6 cm. The ascending aorta is severely enlarged. The aortic arch is normal in size. The pulmonary artery is not well visualized, but is probably normal size. The IVC is dilated (diameter is greater than 2.1 cm) yet it collapses greater than 50% with a sniff. This suggests a right atrial pressure of 8 mm Hg. Pericardium/ Pleura There is an anterior echo-free space consistent with a fat pad. There is no pericardial effusion. There is no pleural effusion. MMode/2D Measurements & Calculations LVIDd: 5.5 cm LVOT diam: 2.1 cm LVIDs: 2.7 cm Ao root diam: 4.8 cm FS: 51.1 % asc Aorta Diam: 5.6 cm EPSS: 1.1 cm Ao Arch Diam (Prox Trans): 2.4 cm IVSd: 1.1 cm LVPWd: 1.4 cm LV goodrich. diameter/BSA (cm/m^2): 2.5 LV sys. diameter/BSA (cm/m^2): 1.2 LA A2 area: 34.7 cm2 RA long axis: 7.8 cm LA A4 area: 37.6 cm2 RA area: 36.2 cm2 LA length (vol): 8.1 cm RA vol: 142.5 ml LA vol: 137.1 ml RA : 64.0 ml/m2 LA vol index: 61.6 ml/m2 IVC diam: 2.4 cm TAPSE: 2.5 cm LVAd ap4: 41.9 cm2 LVAs ap4: 24.3 cm2 LVLs ap4: 7.1 cm LVAd ap2: 40.9 cm2 LVLd ap2: 7.7 cm LVAs ap2: 24.1 cm2 LVLs ap2: 6.8 cm Doppler Measurements & Calculations Ao V2 max: 260.9 cm/sec Med Peak E' Jarret: 7.7 cm/sec Ao V2 mean: 146.2 cm/sec Lat Peak E' Jarret: 11.1 cm/sec Ao max P.6 mmHg Ao mean P.7 mmHg Ao V2 VTI: 47.4 cm TR max jarret: 259.0 cm/sec MR PISA: 0.76 cm2 TR max P.0 mmHg MR flow rate: 27.4 cm3/sec PA V2 max: 83.4 cm/sec MR PISA radius: 0.35 cm PA V2 mean: 58.6 cm/sec PA mean P.5 mmHg PA pr(Accel): 32.8 mmHg Reading Physician:04:35 PM
== END ==
PROVIDERS: Family Provider Internal Medicine; PCP Internal Medicine; Referring Provider Internal Medicine Cardiovascular Disease; Visit Provider Internal Medicine Cardiovascular Disease
DX: I08.0 Rheumatic disorders of both mitral and aortic valves (principal); I77.810 Thoracic aortic ectasia; I77.89 Other specified disorders of arteries and arterioles
CPT/HCPCS: 93306

== ENCOUNTER → 2024-03-02 08:44 | Outpatient (CLI) | payer MEDICARE, OTHER, SELFPAY ==
[2024-03-02 10:27] LABS: Add Manual Diff / Slide Review NO; Basophils Absolute Auto 0 /uL (0-100); Basophils Percent Auto 0.7 % (0-2); Eosinophils Absolute Auto 100 /uL (0-450); Eosinophils Percent Auto 2.7 % (2-4); Hematocrit 41.4 % (41-53); Hemoglobin 14.3 g/dL (13.5-17.5); Lymphocytes Absolute Auto 1700 /uL (1100-4500); Lymphocytes Percent Auto 31.5 % (25-40); Mean Corpuscular HGB Conc 34.5 % (30-36); Mean Corpuscular Hemoglobin 35.9 PG (26-34); Mean Corpuscular Volume 104.1 fL (80-100); Monocytes Absolute Auto 800 /uL (0-900); Monocytes Percent Auto 14.7 % (3-14); Neutrophils Absolute Auto 2700 /uL (1500-7000); Neutrophils Percent Auto 50.4 % (50-75); Platelet Count 164 X10^3/uL (150-400); Red Blood Cell Count 3.98 X10^6/uL (4.5-5.9); Red Cell Distribution Width 13.8 % (11.6-14.8); White Blood Cell Count 5.3 X10^3/uL (4.5-11.0)
[2024-03-02 10:46] LABS: BUN Creatinine Ratio 17.2 (6-22); Blood Urea Nitrogen 16 mg/dL (9-20); Calcium 9.5 mg/dL (8.4-10.2); Carbon Dioxide 28 mmol/L (22-32); Chloride 106 mmol/L (98-107); Cholesterol 188 mg/dL (140-199); Estimated Glomerular Filt Rate > 60 mL/min (>60); Glucose 91 mg/dL (80-110); HDL Cholesterol 79 mg/dL (40-60); HEMOLYSIS < 15 (0-50); LDL Cholesterol Calculated 93 mg/dL (<100); Potassium 4.2 mmol/L (3.4-5.1); Sodium 138 mmol/L (137-145); Triglycerides 81 mg/dL (35-150)
== END ==
PROVIDERS: Family Provider Internal Medicine; PCP Internal Medicine; Referring Provider Internal Medicine Cardiovascular Disease; Visit Provider Internal Medicine Cardiovascular Disease
DX: I10 Essential (primary) hypertension (principal); Z79.01 Long term (current) use of anticoagulants
CPT/HCPCS: 36415; 80048; 80061; 85025

== ENCOUNTER → 2024-04-01 10:32 | Outpatient (CLI) | payer MEDICARE, OTHER, SELFPAY ==
--- NOTE | 2024-04-01 10:35 | DI.CT.S_ITS ---
PROCEDURE: CT ANGIO CHEST INDICATIONS: Thoracic aortic ectasia TECHNIQUE: After the administration of intravenous contrast, 2.5 mm thick sections acquired from the lung apices to the posterior lung bases. Maximum intensity projection (MIP) oblique sagittal reformats were then acquired parallel to the aortic arch. For radiation dose reduction, the following was used: automated exposure control. COMPARISON: [facility], CT, CT ANGIO CHEST, 05/25/2018, 14:24. FINDINGS: Image quality: Excellent. Aorta: Severe ascending aortic aneurysm, measuring 5.8 cm on image 87 of series 4 near the aortic root. It tapers to 4.9 cm at the level of the right main pulmonary vein. Classic three-vessel and arch anatomy. Great vessel origins are widely patent. Transverse arch and descending thoracic aorta are normal in caliber. SMA, JOHANA, and bilateral main renal veins are widely patent. On the previous study, from over 4 years ago, the aortic root measured approximately 4.5 cm. Lower Neck: No enlarged lymph nodes. Thyroid: No thyroid nodules which require sonographic follow up, per consensus guidelines. Axillae: No enlarged lymph nodes. Chest Wall: Unremarkable. Bones: Unremarkable. Lungs and Pleura: No pneumothorax or pleural effusions. No consolidation or suspicious nodules. Heart: Four-chamber cardiomegaly. No pericardial effusion. Thoracic Vessels: Pulmonary arteries demonstrate normal size. Mediastinum and Adelaida: No enlarged lymph nodes. Esophagus: No wall thickening. No hiatal hernia. Upper Abdomen: Visualized upper abdomen solid organs and bowel loops appear normal. IMPRESSION: 1. Growing ascending aortic aneurysm, very large, measuring 5.8 cm. The aortic root. 2. Cardiomegaly. Dictated by: Ishaan Dickens M.D. on 04/02/2024 at 7:04 Approved by: Ishaan Dickens M.D. on 04/02/2024 at 7:09
== END ==
LOC: CT 10:33
PROVIDERS: Family Provider Internal Medicine; PCP Internal Medicine; Referring Provider Internal Medicine Cardiovascular Disease; Visit Provider Internal Medicine Cardiovascular Disease
DX: I71.21 Aneurysm of the ascending aorta, without rupture (principal); I51.7 Cardiomegaly
CPT/HCPCS: 71275; Q9967

== ENCOUNTER → 2024-04-20 09:12 | Outpatient (CLI) | payer MEDICARE, OTHER, SELFPAY ==
[2024-04-20 09:33] LABS: Add Manual Diff / Slide Review NO; Basophils Absolute Auto 100 /uL (0-100); Basophils Percent Auto 0.8 % (0-2); Eosinophils Absolute Auto 100 /uL (0-450); Eosinophils Percent Auto 1.7 % (2-4); Hematocrit 42.2 % (41-53); Hemoglobin 14.2 g/dL (13.5-17.5); Lymphocytes Absolute Auto 1700 /uL (1100-4500); Lymphocytes Percent Auto 29.4 % (25-40); Mean Corpuscular HGB Conc 33.7 % (30-36); Mean Corpuscular Hemoglobin 33.5 PG (26-34); Mean Corpuscular Volume 99.4 fL (80-100); Monocytes Absolute Auto 800 /uL (0-900); Monocytes Percent Auto 13.3 % (3-14); Neutrophils Absolute Auto 3200 /uL (1500-7000); Neutrophils Percent Auto 54.8 % (50-75); Platelet Count 175 X10^3/uL (150-400); Red Blood Cell Count 4.24 X10^6/uL (4.5-5.9); White Blood Cell Count 5.9 X10^3/uL (4.5-11.0)
[2024-04-20 09:58] LABS: BUN Creatinine Ratio 14.5 (6-22); Blood Urea Nitrogen 12 mg/dL (9-20); Calcium 9.1 mg/dL (8.4-10.2); Carbon Dioxide 28 mmol/L (22-32); Chloride 107 mmol/L (98-107); Estimated Glomerular Filt Rate > 60 mL/min (>60); Glucose 99 mg/dL (80-110); HEMOLYSIS < 15 (0-50); Potassium 4.3 mmol/L (3.4-5.1); Sodium 137 mmol/L (137-145)
== END ==
PROVIDERS: Family Provider Internal Medicine; PCP Internal Medicine; Referring Provider Internal Medicine Cardiovascular Disease; Visit Provider Internal Medicine Cardiovascular Disease
DX: I10 Essential (primary) hypertension (principal); I48.19 Other persistent atrial fibrillation; Z01.812 Encounter for preprocedural laboratory examination
CPT/HCPCS: 36415; 80048; 85025

== ENCOUNTER 2025-02-23 08:30 | Outpatient (RCR) | payer MEDICARE, OTHER, SELFPAY | END 2025-02-23 10:30 | LOC: CAR 08:30 | PROVIDERS: Family Provider Internal Medicine; PCP Internal Medicine; Referring Provider Internal Medicine; Visit Provider Internal Medicine | DX: Z95.2 Presence of prosthetic heart valve (principal) | CPT/HCPCS: 93798 ==